=== PATIENT | male | born 1980 | race Caucasian/White ===

== ENCOUNTER 2017-06-27 20:44 | Inpatient (IN) | payer BC ==
[~2017-06-27] VITALS: Ht 182.9 cm; Wt 159.4 kg
[~2017-06-27 20:44] MED LIST: AMOXICILLIN500 MG PO; ANAPROX DS550 MG PO; ATARAX25 MG PO; BIAXIN500 MG PO; CIPROFLOXACIN500 MG PO; CLARITIN10 MG PO; DAYPRO600 M1 PO; EPIPEN1 MG/ML MR; HYDROCODONE BIT1 T11 PO; KENALOG0.1% TP; LOMOTIL 0.025 M1 TA1 PO; MEDROL DOSEPAK4 MG PO; NAPROSYN500 MG PO; NORCO 5-325 TA1 EACH PO; PREDNICOT20 MG PO; PROPRANOLOL ER80 MG PO; PROPRANOLOL HC120 M1 PO; PROPRANOLOL HCL80 M1 PO; PROPRANOLOL HY120 MG PO; TRAMADOL HCL50 MG PO; ZITHROMAX Z PA250 MG PO; ZOFRAN ODT4 MG SL; ZOFRAN ODT8 MG PO; ZOFRAN4 MG PO
[2017-06-27 21:23] LABS: BASO % 0.2 % (0.0-1.0); EOS # 0.1 10*3/uL (0.0-0.4); EOS % 1.2 % (1.0-4.0); HEMATOCRIT 50.2 % (42.0-52.0); HEMOGLOBIN 17.9 g/dl (14.0-18.0); LYMPH # 2.4 10*3/uL (1.3-4.4); LYMPH % 29.3 % (27.0-41.0); MEAN CELL VOLUME 92.8 fl (80.0-94.0); MEAN CORPUSCULAR HGB 33.1 pg (27.0-31.0); MEAN CORPUSCULAR HGB CONC 35.7 g/dl (33.0-37.0); MEAN PLATELET VOLUME 10.8 fl (9.6-12.3); MONO # 0.6 10*3/uL (0.1-1.0); MONO % 6.9 % (3.0-9.0); NEUT % 62.3 % (47.0-73.0); PLATELET COUNT AUTOMATED 188 10*3/uL (130-400); RED BLOOD COUNT 5.41 10*6/uL (4.50-5.90); RED CELL DISTRI WIDTH 11.9 % (0-14.5)
[2017-06-27 21:34] LABS: ACT PARTIAL THROMBO TIME 24.3 SECONDS (20.8-31.5)
[2017-06-27 21:40] LABS: ALBUMIN 3.5 gm/dl (3.1-4.5); ALKALINE PHOSPHATASE 66 U/L (45-117); BUN 15 mg/dl (7-24); CHLORIDE 104 mmol/L (98-107); CREATININE 1.01 mg/dL (0.70-1.30); POTASSIUM 4.3 mmol/L (3.5-5.1); SGOT/AST 22 IU/L (3-35); SGPT/ALT 36 U/L (12-78); SODIUM 140 mmol/L (136-145); TOTAL PROTEIN 6.9 gm/dL (6.4-8.2)
[2017-06-27 21:45] LABS: TROPONIN I < 0.015 ng/ml (<0.045)
[2017-06-27 21:57] VITALS: BP 100/59
[2017-06-27 22:31] VITALS: BP 112/70
[2017-06-27 23:20] VITALS: BP 111/68
[2017-06-28] MEDS ORDERED: PROPRANOLOL HCL80 M1 PO (00:21)
[2017-06-28 07:13] LABS: BASO % 0.3 % (0.0-1.0); EOS # 0.1 10*3/uL (0.0-0.4); EOS % 1.7 % (1.0-4.0); HEMATOCRIT 49.2 % (42.0-52.0); HEMOGLOBIN 17.1 g/dl (14.0-18.0); LYMPH # 3.1 10*3/uL (1.3-4.4); MEAN CELL VOLUME 94.6 fl (80.0-94.0); MEAN CORPUSCULAR HGB 32.9 pg (27.0-31.0); MEAN CORPUSCULAR HGB CONC 34.8 g/dl (33.0-37.0); MEAN PLATELET VOLUME 10.8 fl (9.6-12.3); MONO # 0.6 10*3/uL (0.1-1.0); MONO % 7.5 % (3.0-9.0); NEUT # 3.6 10*3/uL (2.3-7.9); NEUT % 48.1 % (47.0-73.0); PLATELET COUNT AUTOMATED 164 10*3/uL (130-400); RED CELL DISTRI WIDTH 11.9 % (0-14.5); WHITE BLOOD COUNT 7.4 10*3/uL (4.8-10.8)
[2017-06-28 07:18] LABS: ACT PARTIAL THROMBO TIME 23.5 SECONDS (20.8-31.5)
[2017-06-28 07:32] LABS: CHLORIDE 105 mmol/L (98-107); POTASSIUM 4.2 mmol/L (3.5-5.1); SODIUM 142 mmol/L (136-145)
[2017-06-28 07:37] LABS: VITAMIN D, 25-HYDROXY 17.1 ng/mL (30-100)
[2017-06-28 07:58] LABS: ALBUMIN 3.1 gm/dl (3.1-4.5); ALKALINE PHOSPHATASE 64 U/L (45-117); BUN 12 mg/dl (7-24); CHOLESTEROL 168 mg/dL (<200); CREATININE 1.12 mg/dL (0.70-1.30); FREE T4 1.16 ng/dl (0.76-1.46); HDL CHOLESTEROL 46 mg/dl (40-60); LDL CHOLESTEROL 86 mg/dL (9-159); PHOSPHOROUS 3.6 mg/dL (2.5-4.9); SGOT/AST 22 IU/L (3-35); SGPT/ALT 34 U/L (12-78); TOTAL PROTEIN 6.2 gm/dL (6.4-8.2); TRIGLYCERIDES 178 mg/dl (<150); VLDL CHOLESTEROL 36 mg/dL (6-40)
[2017-06-28 08:00] VITALS: BP 120/69
[2017-06-28 12:00] VITALS: BP 112/68
[2017-06-28 16:00] VITALS: BP 99/52
[2017-06-28 20:00] VITALS: BP 115/91
[2017-06-29] VITALS: BP 105/50
[2017-06-29 08:00] VITALS: BP 100/56
[2017-06-29] MEDS ORDERED: ASPIRIN ADULT L81 M2 PO (13:47)
[2017-06-29] MEDS ORDERED: VITAMIN D-32000 UNIT PO (13:47)
== END 2017-06-29 14:47 | disposition home or self-care (01) | DRG 313 ==
LOC: ED 20:44 → 5E 21:42 → EDHOLD 21:42 → 5E 22:38
PROVIDERS: Emergency Medicine Emergency Medical Services; Family Medicine
PROC: 4A02XM4 Measurement of Cardiac Total Activity, External Approach (ICD-10-PCS; principal; 2017-06-29)
DX: R07.89 Other chest pain (principal); E66.01 Morbid (severe) obesity due to excess calories; I48.91 Unspecified atrial fibrillation; G25.0 Essential tremor; E53.8 Deficiency of other specified B group vitamins; E78.1 Pure hyperglyceridemia; E55.9 Vitamin D deficiency, unspecified; Z82.49 Family history of ischemic heart disease and other diseases of the circulatory system; Z83.3 Family history of diabetes mellitus; Z98.52 Vasectomy status; Z91.041 Radiographic dye allergy status; Z91.013 Allergy to seafood; Z72.0 Tobacco use; Z71.6 Tobacco abuse counseling

== ENCOUNTER 2017-08-29 21:14 | Emergency (ER) | payer BC ==
[~2017-08-29] VITALS: Ht 185.4 cm; Wt 154.2 kg
[~2017-08-29 21:14] MED LIST changes: +ASPIRIN ADULT L81 M2 PO; +VITAMIN D-32000 UNIT PO
[2017-08-29 21:18] VITALS: BP 130/87
[2017-08-29 21:39] LABS: BASO % 0.4 % (0.0-1.0); EOS # 0.1 10*3/uL (0.0-0.4); EOS % 1.6 % (1.0-4.0); HEMATOCRIT 48.6 % (42.0-52.0); LYMPH # 2.2 10*3/uL (1.3-4.4); MEAN CELL VOLUME 92.6 fl (80.0-94.0); MEAN CORPUSCULAR HGB 32.4 pg (27.0-31.0); MEAN PLATELET VOLUME 10.1 fl (9.6-12.3); MONO # 0.4 10*3/uL (0.1-1.0); MONO % 5.6 % (3.0-9.0); NEUT # 4.8 10*3/uL (2.3-7.9); NEUT % 63.3 % (47.0-73.0); PLATELET COUNT AUTOMATED 165 10*3/uL (130-400); RED BLOOD COUNT 5.25 10*6/uL (4.50-5.90); RED CELL DISTRI WIDTH 11.5 % (0-14.5); WHITE BLOOD COUNT 7.5 10*3/uL (4.8-10.8)
[2017-08-29 21:54] LABS: ALBUMIN 3.7 gm/dl (3.1-4.5); ALKALINE PHOSPHATASE 54 U/L (45-117); BUN 20 mg/dl (7-24); CHLORIDE 104 mmol/L (98-107); CREATININE 0.99 mg/dL (0.70-1.30); POTASSIUM 3.9 mmol/L (3.5-5.1); SGOT/AST 23 IU/L (3-35); SGPT/ALT 38 U/L (12-78); SODIUM 138 mmol/L (136-145); TOTAL PROTEIN 7.1 gm/dL (6.4-8.2)
[2017-08-29 23:43] LABS: BILIRUBIN NEGATIVE (NEGATIVE); BLOOD TRACE-LYSED (NEGATIVE); CLARITY CLEAR (CLEAR); COLOR YELLOW (YELLOW); GLUCOSE NEGATIVE (NEGATIVE); KETONE TRACE (NEGATIVE); LEUKO ESTERASE NEGATIVE (NEGATIVE); NITRITE NEGATIVE (NEGATIVE); UROBILINOGEN 0.2 E.U./dl (0.2-1.0)
[2017-08-29 23:49] LABS: BACTERIA TRACE; EPITHELIAL CELLS 0-2
[2017-08-30] MEDS ORDERED: IBU800 MG PO (00:11)
== END 2017-08-30 00:40 | disposition home or self-care (01) ==
LOC: ED 21:14
PROVIDERS: Student in an Organized Health Care Education/Training Program
DX: N45.1 Epididymitis (principal); F17.200 Nicotine dependence, unspecified, uncomplicated; E66.01 Morbid (severe) obesity due to excess calories; I48.91 Unspecified atrial fibrillation; Z68.39 Body mass index [BMI] 39.0-39.9, adult; Z90.89 Acquired absence of other organs; Z79.82 Long term (current) use of aspirin; Z79.899 Other long term (current) drug therapy; Z91.013 Allergy to seafood

== ENCOUNTER 2017-11-29 17:22 | Inpatient (IN) | payer BC ==
[~2017-11-29] VITALS: Ht 185.4 cm; Wt 163.3 kg
--- NOTE | ~2017-11-29 | EKG ---
[place], [place] ELECTROCARDIOGRAM REPORT NAME: SWETHA DOBSON UNIT #: [id number] ROOM: 427 DOCTOR: GABRIELA DRAFT REPORT BIRTHDATE: [birth year] [facility] Test Date: 2017-11-30 Test Time: 09:15:02 Pat Name: SWETHA DOBSON Department: Room: 427 1 Gender: M Field Examiner: Lynn Newman : 1980 Requested By: HEBER SAMPSON Order Number: [id number] Reading MD: Devon Conroy MD Measurements Intervals [place] Rate: 97 P: CT: QRS: 75 QRSD: 105 T: 27 QT: 332 QTc: 422 Interpretive Statements Atrial fibrillation ST elev, probable normal early repol pattern Compared to ECG 11/29/2017 17:49:15 ST (T wave) deviation still present No significant change Electronically Signed On 11-30-2017 8:22:43 PDT by Devon Conroy MD CM:EKGRPT:ELECTROCARDIOGRAM REPORT 4 1 HEBER WILLIAMSON DRAFT REPORT HEBER SAMPSON DO
--- NOTE | ~2017-11-29 | EKG ---
[place], [place] ELECTROCARDIOGRAM REPORT NAME: SWETHA DOBSON UNIT #: [id number] ROOM: 427 DOCTOR: GABRIELA DRAFT REPORT BIRTHDATE: [birth year] [facility] Test Date: 2017-11-29 Test Time: 17:49:15 Pat Name: SWETHA DOBSON Department: Room: 427 Gender: M Band Scroll Saw Operator: Merline Johnson : 1980 Requested By: DENNY MARIE Order Number: [id number] Reading MD: Devon Conroy MD Measurements Intervals [place] Rate: 101 P: [place]: QRS: 77 QRSD: 109 T: 11 QT: 340 QTc: 441 Interpretive Statements Atrial fibrillation Borderline T abnormalities, inferior leads ST elev, probable normal early repol pattern Baseline wander in lead(s) II Electronically Signed On 11-29-2017 20:16:03 PDT by Devon Conroy MD CM:EKGRPT:ELECTROCARDIOGRAM REPORT [id number] DENNY OCHOA DRAFT REPORT DENNY MARIE M.D.
--- NOTE | ~2017-11-29 | EKG ---
[place], [place] ELECTROCARDIOGRAM REPORT NAME: SWETHA DOBSON UNIT #: [id number] ROOM: 427 DOCTOR: GABRIELA DRAFT REPORT BIRTHDATE: [birth year] [facility] Test Date: 2017-11-30 Test Time: 11:57:58 Pat Name: SWETHA DOBSON Department: Room: 427 1 Gender: M Inspector Open Die: MARCY : 1980 Requested By: HEBER SAMPSON Order Number: [id number] Reading MD: Devon Conroy MD Measurements Intervals [place] Rate: 74 P: 47 [place]: 187 QRS: 92 QRSD: 119 T: 31 QT: 380 QTc: 422 Interpretive Statements Sinus rhythm Nonspecific intraventricular conduction delay Compared to ECG 11/30/2017 09:15:02 Intraventricular conduction delay now present Atrial fibrillation no longer present ST (T wave) deviation still present Electronically Signed On 12-01-2017 15:40:07 PDT by Devon Conroy MD CM:EKGRPT:ELECTROCARDIOGRAM REPORT [id number] HEBER WILLIAMSON DRAFT REPORT HEBER SAMPSON DO
[~2017-11-29 17:22] MED LIST changes: +IBU800 MG PO
[2017-11-29 17:25] VITALS: BP 134/84
[2017-11-29 17:55] LABS: BASO % 0.4 % (0.0-1.0); EOS # 0.1 10*3/uL (0.0-0.4); EOS % 1.2 % (1.0-4.0); HEMATOCRIT 50.8 % (42.0-52.0); HEMOGLOBIN 17.7 g/dl (14.0-18.0); LYMPH % 26.8 % (27.0-41.0); MEAN CELL VOLUME 93.6 fl (80.0-94.0); MEAN CORPUSCULAR HGB 32.6 pg (27.0-31.0); MEAN CORPUSCULAR HGB CONC 34.8 g/dl (33.0-37.0); MEAN PLATELET VOLUME 10.5 fl (9.6-12.3); MONO # 0.5 10*3/uL (0.1-1.0); MONO % 6.3 % (3.0-9.0); NEUT # 4.8 10*3/uL (2.3-7.9); NEUT % 65.2 % (47.0-73.0); PLATELET COUNT AUTOMATED 185 10*3/uL (130-400); RED BLOOD COUNT 5.43 10*6/uL (4.50-5.90); RED CELL DISTRI WIDTH 11.9 % (0-14.5); WHITE BLOOD COUNT 7.4 10*3/uL (4.8-10.8)
[2017-11-29 18:12] LABS: ALBUMIN 3.5 gm/dl (3.1-4.5); ALKALINE PHOSPHATASE 57 U/L (45-117); BUN 18 mg/dl (7-24); CHLORIDE 107 mmol/L (98-107); CREATININE 1.18 mg/dL (0.70-1.30); SGOT/AST 15 IU/L (3-35); SGPT/ALT 32 U/L (12-78); SODIUM 141 mmol/L (136-145); TOTAL PROTEIN 6.7 gm/dL (6.4-8.2); TROPONIN I < 0.015 ng/ml (<0.045)
[2017-11-29 19:18] VITALS: BP 127/85
[2017-11-29 20:00] VITALS: BP 137/88
[2017-11-29 20:30] VITALS: BP 137/88
[2017-11-30] VITALS: BP 110/54
[2017-11-30 06:36] LABS: BASO % 0.4 % (0.0-1.0); EOS # 0.1 10*3/uL (0.0-0.4); EOS % 1.3 % (1.0-4.0); HEMATOCRIT 53.6 % (42.0-52.0); HEMOGLOBIN 18.4 g/dl (14.0-18.0); LYMPH # 3.2 10*3/uL (1.3-4.4); LYMPH % 38.8 % (27.0-41.0); MEAN CELL VOLUME 95.4 fl (80.0-94.0); MEAN CORPUSCULAR HGB 32.7 pg (27.0-31.0); MEAN CORPUSCULAR HGB CONC 34.3 g/dl (33.0-37.0); MEAN PLATELET VOLUME 10.7 fl (9.6-12.3); MONO # 0.5 10*3/uL (0.1-1.0); MONO % 6.3 % (3.0-9.0); NEUT # 4.3 10*3/uL (2.3-7.9); NEUT % 52.8 % (47.0-73.0); PLATELET COUNT AUTOMATED 156 10*3/uL (130-400); RED BLOOD COUNT 5.62 10*6/uL (4.50-5.90); RED CELL DISTRI WIDTH 11.9 % (0-14.5); WHITE BLOOD COUNT 8.2 10*3/uL (4.8-10.8)
[2017-11-30 06:56] LABS: BUN 15 mg/dl (7-24); CHLORIDE 105 mmol/L (98-107); CREATININE 1.14 mg/dL (0.70-1.30); FREE T4 1.05 ng/dl (0.76-1.46); PHOSPHOROUS 3.6 mg/dL (2.5-4.9); POTASSIUM 4.4 mmol/L (3.5-5.1); SODIUM 142 mmol/L (136-145)
[2017-11-30 08:00] VITALS: BP 122/70; BP 92/68
[2017-11-30 12:00] VITALS: BP 88/60
[2017-11-30 16:00] VITALS: BP 103/61
[2017-11-30] MEDS ORDERED: FLECAINIDE ACE150 M1 PO (18:07)
[2017-11-30 20:00] VITALS: BP 126/83
[2017-12-01] VITALS: BP 111/63
[2017-12-01 08:00] VITALS: BP 112/54
[2017-12-01 08:21] LABS: BUN 16 mg/dl (7-24); CHLORIDE 104 mmol/L (98-107); CREATININE 0.95 mg/dL (0.70-1.30); POTASSIUM 4.2 mmol/L (3.5-5.1); SODIUM 141 mmol/L (136-145)
[2017-12-01 08:24] LABS: BASO % 0.3 % (0.0-1.0); EOS # 0.1 10*3/uL (0.0-0.4); EOS % 1.3 % (1.0-4.0); HEMOGLOBIN 16.9 g/dl (14.0-18.0); LYMPH # 2.1 10*3/uL (1.3-4.4); LYMPH % 30.4 % (27.0-41.0); MEAN CELL VOLUME 94.5 fl (80.0-94.0); MEAN CORPUSCULAR HGB 31.9 pg (27.0-31.0); MEAN CORPUSCULAR HGB CONC 33.8 g/dl (33.0-37.0); MONO # 0.5 10*3/uL (0.1-1.0); NEUT # 4.1 10*3/uL (2.3-7.9); NEUT % 60.6 % (47.0-73.0); PLATELET COUNT AUTOMATED 151 10*3/uL (130-400); RED BLOOD COUNT 5.29 10*6/uL (4.50-5.90); RED CELL DISTRI WIDTH 11.9 % (0-14.5); WHITE BLOOD COUNT 6.8 10*3/uL (4.8-10.8)
[2017-12-01 12:00] VITALS: BP 135/90
== END 2017-12-01 15:44 | disposition home or self-care (01) | DRG 309 ==
LOC: ED 17:22 → 4E 18:59 → EDHOLD 18:59 → 4E 19:19
PROVIDERS: Emergency Medicine; Internal Medicine; Student in an Organized Health Care Education/Training Program
DX: I48.0 Paroxysmal atrial fibrillation (principal); R65.10 Systemic inflammatory response syndrome (SIRS) of non-infectious origin without acute organ dysfunction; Z99.81 Dependence on supplemental oxygen; E66.01 Morbid (severe) obesity due to excess calories; Z68.42 Body mass index [BMI] 45.0-49.9, adult; R07.9 Chest pain, unspecified; G47.33 Obstructive sleep apnea (adult) (pediatric); R00.0 Tachycardia, unspecified; D72.810 Lymphocytopenia; R25.1 Tremor, unspecified; R07.2 Precordial pain; R09.02 Hypoxemia; Z72.0 Tobacco use; Z71.6 Tobacco abuse counseling; Z82.49 Family history of ischemic heart disease and other diseases of the circulatory system; Z91.041 Radiographic dye allergy status; Z91.013 Allergy to seafood; Z79.899 Other long term (current) drug therapy; Z79.82 Long term (current) use of aspirin; Z83.3 Family history of diabetes mellitus; Z98.52 Vasectomy status; Z90.89 Acquired absence of other organs; Z84.89 Family history of other specified conditions

== ENCOUNTER → 2019-11-01 | Outpatient (CLI) | payer BC ==
[~2019-11-01] MED LIST changes: +FLECAINIDE ACE150 M1 PO
== END | disposition home or self-care (01) ==
LOC: COVID19 00:16
DX: Z20.828 Contact with and (suspected) exposure to other viral communicable diseases (principal)

== ENCOUNTER → 2020-04-08 | Outpatient (CLI) | payer BC | END | disposition home or self-care (01) | LOC: RAD 09:46 | PROVIDERS: ATTEND Podiatrist | DX: M79.672 Pain in left foot (principal) ==

== ENCOUNTER → 2020-05-30 | Outpatient (CLI) | payer BC | END | disposition home or self-care (01) | LOC: COVID19 10:06 | PROVIDERS: ATTEND Physician Assistant Medical | DX: U07.1 COVID-19 (principal) ==

== ENCOUNTER 2020-10-25 06:03 | Emergency (ER) | payer BC ==
[2020-10-25 06:10] VITALS: BP 117/78
[2020-10-25 06:32] LABS: BASO % 0.3 % (0.0-1.0); EOS # 0.1 10*3/uL (0.0-0.4); EOS % 1.8 % (1.0-4.0); HEMATOCRIT 45.9 % (42.0-52.0); LYMPH # 1.3 10*3/uL (1.3-4.4); LYMPH % 21.4 % (27.0-41.0); MEAN CELL VOLUME 94.6 fl (80.0-94.0); MEAN CORPUSCULAR HGB 32.6 pg (27.0-31.0); MEAN CORPUSCULAR HGB CONC 34.4 g/dl (33.0-37.0); MEAN PLATELET VOLUME 10.2 fl (9.6-12.3); MONO # 0.4 10*3/uL (0.1-1.0); NEUT # 4.4 10*3/uL (2.3-7.9); NEUT % 70.2 % (47.0-73.0); PLATELET COUNT AUTOMATED 157 10*3/uL (130-400); RED BLOOD COUNT 4.85 10*6/uL (4.50-5.90); RED CELL DISTRI WIDTH 11.6 % (0-14.5); WHITE BLOOD COUNT 6.2 10*3/uL (4.8-10.8)
[2020-10-25 06:49] LABS: ALBUMIN 3.4 gm/dl (3.1-4.5); ALKALINE PHOSPHATASE 59 U/L (45-117); BUN 12 mg/dl (7-24); CHLORIDE 108 mmol/L (98-107); CREATININE 1.06 mg/dL (0.70-1.30); POTASSIUM 4.5 mmol/L (3.5-5.1); SGOT/AST 18 IU/L (3-35); SGPT/ALT 40 U/L (12-78); SODIUM 138 mmol/L (136-145); TOTAL PROTEIN 6.7 gm/dL (6.4-8.2)
== END 2020-10-25 07:30 | disposition home or self-care (01) ==
LOC: ED 06:03
PROVIDERS: Internal Medicine
DX: K59.00 Constipation, unspecified (principal); R11.2 Nausea with vomiting, unspecified; R42 Dizziness and giddiness; R51.9 Headache, unspecified; F17.200 Nicotine dependence, unspecified, uncomplicated; Z91.041 Radiographic dye allergy status; Z91.013 Allergy to seafood; Z79.899 Other long term (current) drug therapy; Z79.82 Long term (current) use of aspirin; Z90.89 Acquired absence of other organs

== ENCOUNTER 2022-10-12 13:47 | Emergency (ER) | payer BC ==
[~2022-10-12] VITALS: Ht 185.4 cm; Wt 187.8 kg
[2022-10-12 13:51] VITALS: BP 154/90
[2022-10-12] MEDS ORDERED: OMEPRAZOLE20 M3 PO (13:57)
[2022-10-12 14:25] LABS: BASO % 0.3 % (0.0-1.0); EOS # 0.2 10*3/uL (0.0-0.4); EOS % 2.7 % (1.0-4.0); HEMATOCRIT 48.6 % (42.0-52.0); LYMPH # 2.1 10*3/uL (1.3-4.4); LYMPH % 33.5 % (27.0-41.0); MEAN CELL VOLUME 95.3 fl (80.0-94.0); MEAN CORPUSCULAR HGB 32.7 pg (27.0-31.0); MEAN CORPUSCULAR HGB CONC 34.4 g/dl (33.0-37.0); MEAN PLATELET VOLUME 10.4 fl (9.6-12.3); MONO # 0.3 10*3/uL (0.1-1.0); NEUT # 3.6 10*3/uL (2.3-7.9); NEUT % 58.3 % (47.0-73.0); PLATELET COUNT AUTOMATED 180 10*3/uL (130-400); RED CELL DISTRI WIDTH 12.1 % (0-14.5); WHITE BLOOD COUNT 6.2 10*3/uL (4.8-10.8)
[2022-10-12 14:49] LABS: ALKALINE PHOSPHATASE 64 U/L (46-116); BUN 11 mg/dl (9-23); CHLORIDE 105 mmol/L (98-107); LIPASE 37 U/L (12-53); POTASSIUM 3.9 mmol/L (3.4-5.1); SGPT/ALT 38 U/L (10-49); TOTAL PROTEIN 6.6 gm/dL (6.0-8.0)
[2022-10-12] MEDS ORDERED: CYCLOBENZAPRINE10 MG PO (17:10)
[2022-10-12] MEDS ORDERED: PREDNISONE50 MG PO (17:10)
== END 2022-10-12 17:18 | disposition home or self-care (01) ==
LOC: ED 13:47
PROVIDERS: Emergency Medicine
DX: S29.012A Strain of muscle and tendon of back wall of thorax, initial encounter (principal); I48.91 Unspecified atrial fibrillation; Z91.041 Radiographic dye allergy status; Z91.013 Allergy to seafood; Z90.89 Acquired absence of other organs; Z98.890 Other specified postprocedural states; F17.200 Nicotine dependence, unspecified, uncomplicated; X58.XXXA Exposure to other specified factors, initial encounter; Y93.89 Activity, other specified; Y92.89 Other specified places as the place of occurrence of the external cause; Y99.8 Other external cause status